=== PATIENT | male | born 1950 | race Caucasian/White ===

== ENCOUNTER 2020-11-06 19:40 | Observation (INO) | payer BC, MEDICARE ==
--- NOTE | 2020-11-06 20:10 | ED ---
General Adult HPI - General Chief complaint: Chest Pain Stated complaint: Chest Discomfort Time Seen by Provider: 11/06/20 19:46 Source: patient, EMS Mode of arrival: EMS Limitations: no limitations - History of Present Illness Initial comments: 70 year-old male patient with past history significant for hypertension, hyperlipidemia, and "pre-diabetes" presents to the emergency department for evaluation of chest pain. States he started having symptoms 3 days ago. Pain waxing and waning. Denies any specific exacerbating or relieving factors. States when he lies down he feels like his heart is pounding out of his chest. Denies any associated symptoms including shortness of breath, nausea, or sweating. Denies any personal history of cardiac disease. States his grandmother had heart problems. Does take blood pressure medication and cholesterol medication. Does not take any medication for diabetes. Patient denies any recent rash, fever, chills, cough, abdominal pain, vomiting, diarrhea, constipation, back pain, numbness, tingling, dizziness, weakness, hematuria, dysuria, urinary urgency, urinary frequency, headache, visual changes, or any other complaints. Denies leg swelling or calf pain. He did receive aspirin and one nitro in EMS. - Related Data Home Medications Medication Instructions Recorded Confirmed Aspirin 650 mg PO ONCE PRN 11/06/20 11/06/20 Atorvastatin [Lipitor] 20 mg PO HS 11/06/20 11/06/20 Meloxicam [Mobic] 15 mg PO HS PRN 11/06/20 11/06/20 carvediloL [Coreg] 6.25 mg PO BID 11/06/20 11/06/20 lisinopriL [Zestril] 10 mg PO DAILY 11/06/20 11/06/20 Allergies Allergy/AdvReac Type Severity Reaction Status Date / Time No Known Allergies Allergy Unverified 11/06/20 20:43 Review of Systems ROS Statement: Those systems with pertinent positive or pertinent negative responses have been documented in the HPI. ROS Other: All systems not noted in ROS Statement are negative. Past Medical History - Past Family History Mother Family Medical History: Diabetes Mellitus Additional Family Medical History / Comment(s): cancer. Father Family Medical History: Dementia Additional Family Medical History / Comment(s): in 2012 General Exam Limitations: no limitations General appearance: alert, in no apparent distress, other (This is a well-deve loped, well-nourished adult male patient in no acute distress. Vital signs upon presentation temperature 97.3F, pulse 71, respirations 16, blood pressure 130/75, pulse ox 99% on room air.) Eye exam: Present: normal appearance, PERRL, EOMI. Absent: scleral icterus, conjunctival injection, periorbital swelling Respiratory exam: Present: normal lung sounds bilaterally. Absent: respiratory distress, wheezes, rales, rhonchi, stridor Cardiovascular Exam: Present: regular rate, normal rhythm, normal heart sounds. Absent: systolic murmur, diastolic murmur, rubs, gallop, clicks GI/Abdominal exam: Present: soft, normal bowel sounds. Absent: distended, tenderness, guarding, rebound, rigid Neurological exam: Present: alert, oriented X3, CN II-XII intact Psychiatric exam: Present: normal affect, normal mood Skin exam: Present: warm, dry, intact, normal color. Absent: rash Course Vital Signs 11/06/20 11/06/20 11/06/20 19:49 19:57 20:57 Temperature 97.3 F L Pulse Rate 71 84 88 Respiratory 16 16 20 Rate Blood Pressure 130/75 124/71 126/73 O2 Sat by Pulse 99 Oximetry 11/06/20 11/06/20 11/06/20 21:57 22:57 23:57 Temperature Pulse Rate 22 L 86 96 Respiratory 18 16 18 Rate Blood Pressure 100/75 123/75 121/75 O2 Sat by Pulse 99 Oximetry EKG Findings - EKG Comments: EKG Findings:: EKG obtained in 1950 shows normal sinus rhythm with a sinus arrhythmia. Ventricular rate is 73, KS interval 174, QRS duration 78, QT 382, QTc 420. No evidence of ST elevation or depression. Medical Decision Making - Medical Decision Making 70 year-old male patient presents to the emergency department for chest pain for the last few days. Physical exam is unremarkable. He state he was using a sledge hammer over the weekend, but pain does not worsen with movement and is not reproduceable. EKG showed sinus with no ST elevation or depression. Labs reviewed and revealed normal troponin. Chest x-ray is negative. Did discuss findings and results with the patient. Given risk factors and description of pain we will admit to the hospital for serial troponins and further evaluation by cardiology. Patient is agreeable this plan. Case discussed with my attending Dr. Warner. - Lab Data Result diagrams: 11/06/20 20:20 11/06/20 20:20 Lab Results 11/06/20 11/06/20 11/06/20 Range/Units 20:20 20:20 20:20 WBC 7.9 (3.8-10.6) k/uL RBC 4.47 (4.30-5.90) m/uL Hgb 14.0 (13.0-17.5) gm/dL Hct 39.8 (39.0-53.0) % MCV 88.9 (80.0-100.0) fL MCH 31.2 (25.0-35.0) pg MCHC 35.1 (31.0-37.0) g/dL RDW 12.2 (11.5-15.5) % Plt Count 121 L (150-450) k/uL MPV 7.5 Neutrophils % 60 % Lymphocytes % 28 % Monocytes % 5 % Eosinophils % 4 % Basophils % 1 % Neutrophils # 4.7 (1.3-7.7) k/uL Lymphocytes # 2.2 (1.0-4.8) k/uL Monocytes # 0.4 (0-1.0) k/uL Eosinophils # 0.4 (0-0.7) k/uL Basophils # 0.0 (0-0.2) k/uL PT 10.8 (9.0-12.0) sec INR 1.0 (<1.2) APTT 21.7 L (22.0-30.0) sec Sodium 139 (137-145) mmol/L Potassium 4.1 (3.5-5.1) mmol/L Chloride 111 H (98-107) mmol/L Carbon Dioxide 23 (22-30) mmol/L Anion Gap 5 mmol/L BUN 20 (9-20) mg/dL Creatinine 0.99 (0.66-1.25) mg/dL Est GFR (CKD-EPI)AfAm >90 (>60 ml/min/1.73 sqM) Est GFR (CKD-EPI)NonAf 78 (>60 ml/min/1.73 sqM) Glucose 91 (74-99) mg/dL Calcium 9.1 (8.4-10.2) mg/dL Magnesium 2.0 (1.6-2.3) mg/dL Total Bilirubin 0.8 (0.2-1.3) mg/dL AST 25 (17-59) U/L ALT 17 (4-49) U/L Alkaline Phosphatase 57 (38-126) U/L Troponin I (0.000-0.034) ng/mL Total Protein 6.2 L (6.3-8.2) g/dL Albumin 3.9 (3.5-5.0) g/dL Lipase 99 (23-300) U/L Coronavirus (PCR) (Not Detectd) 11/06/20 11/06/20 Range/Units 20:20 22:30 WBC (3.8-10.6) k/uL RBC (4.30-5.90) m/uL Hgb (13.0-17.5) gm/dL Hct (39.0-53.0) % MCV (80.0-100.0) fL MCH (25.0-35.0) pg MCHC (31.0-37.0) g/dL RDW (11.5-15.5) % Plt Count (150-450) k/uL MPV Neutrophils % % Lymphocytes % % Monocytes % % Eosinophils % % Basophils % % Neutrophils # (1.3-7.7) k/uL Lymphocytes # (1.0-4.8) k/uL Monocytes # (0-1.0) k/uL Eosinophils # (0-0.7) k/uL Basophils # (0-0.2) k/uL PT (9.0-12.0) sec INR (<1.2) APTT (22.0-30.0) sec Sodium (137-145) mmol/L Potassium (3.5-5.1) mmol/L Chloride (98-107) mmol/L Carbon Dioxide (22-30) mmol/L Anion Gap mmol/L BUN (9-20) mg/dL Creatinine (0.66-1.25) mg/dL Est GFR (CKD-EPI)AfAm (>60 ml/min/1.73 sqM) Est GFR (CKD-EPI)NonAf (>60 ml/min/1.73 sqM) Glucose (74-99) mg/dL Calcium (8.4-10.2) mg/dL Magnesium (1.6-2.3) mg/dL Total Bilirubin (0.2-1.3) mg/dL AST (17-59) U/L ALT (4-49) U/L Alkaline Phosphatase (38-126) U/L Troponin I <0.012 (0.000-0.034) ng/mL Total Protein (6.3-8.2) g/dL Albumin (3.5-5.0) g/dL Lipase (23-300) U/L Coronavirus (PCR) Not Detected (Not Detectd) - EKG Data -: EKG Interpreted by Me EKG Comments: EKG obtained at 0010 shows normal sinus rhythm with sinus arrhythmia. V entricular rate 74, KS interval 188, QT 364, QTC 404. No evidence of ST elevation or depression - Radiology Data Radiology results: report reviewed, image reviewed Two-view x-ray of the chest is obtained. Report was reviewed in its entirety. Impression by Dr. Peoples shows normal chest Disposition Clinical Impression: Chest pain, Palpitations Disposition: ADMITTED IP TO THIS [facility] Condition: Serious Decision to Admit Reason: Admit from EC Decision Date: 11/06/20 Decision Time: 22:26
[2020-11-06 20:33] LABS: Basophils % (A) 1 %; Eosinophils # (A) 0.4 k/uL (0-0.7); Eosinophils % (A) 4 %; HCT 39.8 % (39.0-53.0); Lymphocytes # (A) 2.2 k/uL (1.0-4.8); Lymphocytes % (A) 28 %; MCH 31.2 pg (25.0-35.0); MCHC 35.1 g/dL (31.0-37.0); MCV 88.9 fL (80.0-100.0); Mean Platelet Volume 7.5; Monocytes # (A) 0.4 k/uL (0-1.0); Monocytes % (A) 5 %; Neutrophils # (A) 4.7 k/uL (1.3-7.7); Neutrophils % (A) 60 %; Platelet Count 121 k/uL (150-450); RBC 4.47 m/uL (4.30-5.90); RDW 12.2 % (11.5-15.5); WBC 7.9 k/uL (3.8-10.6)
[2020-11-06 20:47] LABS: Prothrombin Time 10.8 sec (9.0-12.0)
[2020-11-06 20:58] LABS: Partial Thromboplastin Time 21.7 sec (22.0-30.0)
[2020-11-06 21:07] LABS: ALT 17 U/L (4-49); AST 25 U/L (17-59); African American GFR (CKD) >90 (>60 ml/min/1.73 sqM); Albumin 3.9 g/dL (3.5-5.0); Alkaline Phosphatase 57 U/L (38-126); Anion Gap 5 mmol/L; Blood Urea Nitrogen 20 mg/dL (9-20); Calcium 9.1 mg/dL (8.4-10.2); Carbon Dioxide 23 mmol/L (22-30); Chloride 111 mmol/L (98-107); Glucose 91 mg/dL (74-99); Lipase 99 U/L (23-300); Non-African American GFR(CKD) 78 (>60 ml/min/1.73 sqM); Potassium 4.1 mmol/L (3.5-5.1); Sodium 139 mmol/L (137-145); Total Bilirubin 0.8 mg/dL (0.2-1.3); Total Protein 6.2 g/dL (6.3-8.2)
--- NOTE | 2020-11-06 21:37 | XR ---
EXAMINATION TYPE: XR chest 2V DATE OF EXAM: 11/06/2020 COMPARISON: NONE HISTORY: Chest tightness TECHNIQUE: 2 views FINDINGS: Heart and mediastinum are normal. Lungs are clear. Diaphragm is normal. Bony thorax is inta ct. There are chest leads. IMPRESSION: Normal chest.
[2020-11-06] MEDS ORDERED: MORPHINE SULFATE 4 MG/ML SYRINGE IV PRN (22:24)
[2020-11-06] MEDS ORDERED: NALOXONE 0.4 MG/ML 1 ML VIAL IV PRN (22:24)
[2020-11-06] MEDS ORDERED: ONDANSETRON 4 MG/2 ML VIAL IVP PRN (22:24)
[2020-11-07 07:57] VITALS: BP 131/74; PULSE 79; RESP 16; TEMP 98.1
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
[2020-11-07] MEDS ORDERED: carvediloL 6.25 MG TAB PO SCH (08:30)
[2020-11-07] MEDS ORDERED: lisinopriL 10 MG TAB PO SCH (09:00)
--- NOTE | 2020-11-07 14:57 | P.DS ---
Providers Date of admission: 11/06/20 23:15 Attending physician: Juvenal Delgado MD Consults: 11/06/20 22:25 Consult Physician Routine Consulting Provider: [facility] Consult Reason/Comments: Chest pain; Palpitations Do you want consulting provider notified?: Yes Primary care physician: Manjula Del Rio [facility] Course: Please refer to my HPI for further details Patient Condition at Discharge: Serious Plan - Discharge Summary New Discharge Prescriptions: Continue lisinopriL [Zestril] 10 mg PO DAILY carvediloL [Coreg] 6.25 mg PO BID Atorvastatin [Lipitor] 20 mg PO HS Aspirin 650 mg PO ONCE PRN PRN Reason: Pain Meloxicam [Mobic] 15 mg PO HS PRN PRN Reason: Pain Discharge Medication List Aspirin 650 mg PO ONCE PRN 11/06/20 [History] Atorvastatin [Lipitor] 20 mg PO HS 11/06/20 [History] Meloxicam [Mobic] 15 mg PO HS PRN 11/06/20 [History] carvediloL [Coreg] 6.25 mg PO BID 11/06/20 [History] lisinopriL [Zestril] 10 mg PO DAILY 11/06/20 [History] Follow up Appointment(s)/Referral(s): Joe Smith MD [STAFF PHYSICIAN] - 1 Week Manjula Del Rio DO [Primary Care Provider] - 3 Days Activity/Diet/Wound Care/Special Instructions: Please call cardiology office first thing Monday morning to arrange follow up appointment. Continue home medications. If symptoms persist/change please return to ER. Discharge Disposition: HOME SELF-CARE
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
[2020-11-07] MEDS ORDERED: MELOXICAM 7.5 MG TAB PO PRN (21:00)
[2020-11-07] MEDS ORDERED: ATORVASTATIN 20 MG TAB PO SCH (21:00)
== END 2020-11-07 11:40 | disposition home or self-care (01) ==
LOC: EC 19:40 → 6NMEDSUR 23:15
PROVIDERS: ADMIT Internal Medicine; ATTEND Internal Medicine
DX: R07.89 Other chest pain (principal); R00.2 Palpitations; F43.9 Reaction to severe stress, unspecified; E78.5 Hyperlipidemia, unspecified; I10 Essential (primary) hypertension; R73.03 Prediabetes; M19.90 Unspecified osteoarthritis, unspecified site; E66.9 Obesity, unspecified; Z68.31 Body mass index [BMI] 31.0-31.9, adult; Z20.822 Contact with and (suspected) exposure to COVID-19; Z79.899 Other long term (current) drug therapy; Z87.81 Personal history of (healed) traumatic fracture; Z87.891 Personal history of nicotine dependence; Z83.3 Family history of diabetes mellitus; Z82.49 Family history of ischemic heart disease and other diseases of the circulatory system; Z80.9 Family history of malignant neoplasm, unspecified; Z82.0 Family history of epilepsy and other diseases of the nervous system
CPT/HCPCS: 96374; 96375; 93005 ×2; 99285; 36415; 80053; 84443; 83690; 83735; 84484 ×2; 85025; 85610; 85730; 87635; 71046; G0378 ×2; J2270; J2405

== ENCOUNTER → 2020-12-01 | Outpatient (CLI) | payer MEDICARE ==
--- NOTE | 2020-12-01 13:41 | ECHOS ---
STRESS ECHOCARDIOGRAM LUMASON: Vial INDICATIONS: Angina MEDICATIONS: BASELINE HEART RATE: 80 BASELINE BLOOD PRESSURE: 142/80 MAXIMUM HEART RATE: 139 MAXIMUM BLOOD PRESSURE: 156/69 85% MPHR: 129 100% MPHR: 152 METS: 8.1 MAXIMUM STAGE REACHED: II TOTAL EXERCISE TIME: 6:45 RESULTS: Baseline EKG revealed normal sinus rhythm without significant ST changes. Patient walked on standard [place] protocol for 6 minutes 46 seconds achieved a maximal heart rate of 139 beats per minute which is more than 85% of predicted maximal. Patient developed fatigue and shortness of breath but did not have angina or arrhythmia. EKG did not reveal any ST-segment changes to indicate ischemia. By EKG criteria, this is a negative stress test with fair exercise capacity. Baseline echo images revealed normal wall motion and wall thickening of all segments. At peak exercise, there was good augmentation of left ventricular wall motion, wall thickening of all segments suggesting that there is no evidence of stress-induced ischemia on this study. FINAL IMPRESSION: 1. Fair exercise capacity with a negative stress test by EKG criteria. 2. Normal stress echocardiogram. MMODL / IJN: [id number] /
== END | disposition home or self-care (01) ==
LOC: RADNMMAIN 08:57
PROVIDERS: ATTEND Family Medicine
DX: I20.9 Angina pectoris, unspecified (principal)
CPT/HCPCS: 93351; Q9950

== ENCOUNTER 2021-04-22 17:16 | Emergency (ER) | payer MEDICARE ==
[2021-04-22 17:27] VITALS: RESP 19
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
[2021-04-22 18:42] VITALS: BP 136/88; PULSE 78; TEMP 98.2
== END 2021-04-22 18:41 | disposition home or self-care (01) ==
LOC: EC 17:16
DX: Z20.822 Contact with and (suspected) exposure to COVID-19 (principal); I10 Essential (primary) hypertension; E78.5 Hyperlipidemia, unspecified; Z79.899 Other long term (current) drug therapy; Z87.891 Personal history of nicotine dependence
CPT/HCPCS: 87635; 99283